=== PATIENT | female | born 1945 | race Asian ===

== ENCOUNTER 2020-08-28 15:23 | Emergency (ER) | payer MEDICARE ==
[~2020-08-28] VITALS: Ht 152.4 cm; Wt 54.4 kg
[2020-08-28 15:25] VITALS: BP_SYST 172
[2020-08-28] MEDS ORDERED: HYDROcodone/ACETAMIN 10-325 MG TAB PO ONE (16:30)
[2020-08-28] MEDS ORDERED: MORPHINE 4 MG/ML INJ. SYRINGE IM ONE (17:30)
[2020-08-28] MEDS ORDERED: ONDANSETRON 4 MG ODT TAB PO ONE (17:30)
[2020-08-28] MEDS ORDERED: KETOROLAC TROMETHAMINE 30 MG VIAL IM ONE (19:15)
[2020-08-28 19:17] VITALS: BP_SYST 167
== END 2020-08-28 19:17 | disposition home or self-care (01) ==
LOC: SED 15:23
DX: S42.021A Displaced fracture of shaft of right clavicle, initial encounter for closed fracture (principal); I10 Essential (primary) hypertension; Z88.1 Allergy status to other antibiotic agents; Z86.79 Personal history of other diseases of the circulatory system; W06.XXXA Fall from bed, initial encounter; Y93.89 Activity, other specified; Y92.89 Other specified places as the place of occurrence of the external cause; Y99.8 Other external cause status
CPT/HCPCS: 73030; 96372; 99283; J2270; Q0162

== ENCOUNTER 2021-03-26 16:20 | Emergency (ER) | payer MEDICARE, SELFPAY ==
[~2021-03-26] VITALS: Ht 147.3 cm; Wt 54.4 kg
[2021-03-26 16:35] VITALS: BP_SYST 150
--- NOTE | 2021-03-26 17:27 | NUR ---
Patient to ER bed H2 to gown for evaluation. Side rails up.
--- NOTE | 2021-03-26 17:36 | NUR ---
PATIENT BROUGHT VIA BLS FROM [facility] COMPLAINING OF LOWER BACK PAIN WORSENING X 1 WEEK AFTER ROLL OFF BED. GIN INSPECTOR REPORT THAT SHE WAS SEEN AT [place] 1 WEEK AGO AND DISCHARGED THE NEXT DAY. ALL TESTS WERE NEGATIVE. PAIN 01/29 [id number]
--- NOTE | 2021-03-26 18:40 | NUR ---
Patient to ER bed 03 to gown for evaluation. Side rails up.
--- NOTE | 2021-03-26 19:19 | NUR ---
ER DR. DUNCAN AT THE BEDSIDE EXAMINING PT
[2021-03-26 19:21] LABS: BASOPHILS # (AUTO) 0.1 K/uL (0.0-0.2); BASOPHILS % (AUTO) 0.4 % (0.0-2.0); EOSINOPHILS # (AUTO) 0.1 K/uL (0.0-0.4); EOSINOPHILS % (AUTO) 0.4 % (0.0-4.0); HEMATOCRIT 36.7 % (36-48); HEMOGLOBIN 12.2 g/dL (12.0-16.0); MEAN CORPUSCULAR HEMOGLOBIN 32 pg (27-31); MEAN CORPUSCULAR HGB CONC 33 % (32-36); MEAN CORPUSCULAR VOLUME 95 fL (79.0-98.0); MONOCYTES # (AUTO) 0.9 K/uL (0.0-1.0); MONOCYTES % (AUTO) 5.6 % (1.7-9.3); NEUTROPHILS # (AUTO) 14.1 K/uL (1.8-7.7); NEUTROPHILS % (AUTO) 87.6 % (40.0-70.0); PLATELET COUNT (AUTO) 356 K/uL (130-430); RED BLOOD CELL COUNT(AUTO) 3.86 MIL/uL (4.2-6.2); RED CELL DISTRIBUTION WIDTH 13.4 % (9.0-15.0); WHITE BLOOD COUNT (AUTO) 16.1 K/uL (4.8-10.8)
[2021-03-26 19:29] LABS: BILIRUBIN,URINE NEGATIVE (NEGATIVE); BLOOD, URINE NEGATIVE (NEGATIVE); CLARITY/URINE CLOUDY (CLEAR); COLOR,URINE YELLOW (YELLOW); GLUCOSE,URINE NEGATIVE (NEGATIVE); KETONES,URINE TRACE (NEGATIVE); LEUKOCYTE ESTERASE ,URINE 2+ (NEGATIVE); NITRITE, URINE NEGATIVE (NEGATIVE); PH,URINE 5.5 (5.0-8.0); PROTEIN URINE NEGATIVE (NEGATIVE); UROBILINOGEN,URINE 0.2 (0.2-1.0)
[2021-03-26] MEDS ORDERED: MORPHINE 2 MG/ML INJ. SYRINGE IVP ONE (19:30)
[2021-03-26 19:38] LABS: ANION GAP 10 (5-15); CHLORIDE 102 mmol/L (98-107); CREATININE 0.91 mg/dL (0.55-1.30); GLUCOSE 158 mg/dL (70-99); POTASSIUM 3.3 mmol/L (3.5-5.1); SODIUM SERUM 140 mmol/L (136-145); UREA NITROGEN, BLOOD 15 mg/dL (8-21)
--- NOTE | 2021-03-26 19:40 | NUR ---
IV Morphine given per md order.
[2021-03-26 19:44] LABS: ALANINE AMINOTRANSFERASE 45 U/L (12-78); ALBUMIN 3.5 g/dL (3.4-4.8); ASPARTATE AMINOTRANSFERASE 36 U/L (10-37); TOTAL BILIRUBIN 0.8 mg/dL (0.0-1.0)
--- NOTE | 2021-03-26 19:50 | NUR ---
2L 02 applied for o2 saturation of 90% on RA.
--- NOTE | 2021-03-26 19:56 | NUR ---
PT TAKEN TO CT IN STABLE CONDITION.
[2021-03-26 20:39] LABS: RBC,URINE 0-3 /HPF (0-3); WBC,URINE >100 /HPF (0-3)
[2021-03-26 20:40] LABS: BACTERIA,URINE MANY /HPF (None Seen)
[2021-03-26 20:41] LABS: OTHER CASTS, URINE WBC CASTS 2+ /LPF (None Seen)
[2021-03-26 20:42] LABS: MUCUS,URINE 2+ /LPF (None Seen)
[2021-03-26] MEDS ORDERED: LEVO88TA5 PO (20:46)
[2021-03-26] MEDS ORDERED: AMLO5TAB4 PO (20:46)
[2021-03-26] MEDS ORDERED: LIP20 PO (20:46)
[2021-03-26] MEDS ORDERED: IBAN150T21 PO (20:46)
[2021-03-26] MEDS ORDERED: LOSA100T3 PO (20:46)
[2021-03-26] MEDS ORDERED: ATEN50TA PO (20:46)
[2021-03-26] MEDS ORDERED: MIRT-91 PO (20:46)
[2021-03-26] MEDS ORDERED: SERT-436 PO (20:46)
[2021-03-26] MEDS ORDERED: cefTRIAXone 1 GM in D5W 50 ML IV ONE (22:00)
--- NOTE | 2021-03-26 22:00 | NUR ---
Pt resting in bed drinking water. Ashu Davis at bedside.
[2021-03-26] MEDS ORDERED: cefTRIAXone 1 GM VIAL ONE (22:10)
[2021-03-26] MEDS ORDERED: MORPHINE 4 MG INJ. 4 MG/ML VIAL IVP ONE (22:15)
[2021-03-27 00:13] VITALS: BP_SYST 111
--- NOTE | 2021-03-27 00:17 | NUR ---
Patient to be transferred to [facility]. Is being transferred due to higher level of care. Receiving facility has accepting physician and available space. ER physician has signed transfer form. Patient or responsible constitution party has agreed to transfer and signed form. Patient belongings inventoried and will be sent with patient. Copy of nursing notes, lab reports, EKG, Physicians Orders and X-rays to be sent with patient. Report called to Real at receiving facility. Receiving physician is Remi. [facility] service has been called for transfer. ETA is 1200.
== END 2021-03-27 00:17 | disposition short-term general hospital (02) ==
LOC: SED 16:20
DX: N39.0 Urinary tract infection, site not specified (principal); M43.9 Deforming dorsopathy, unspecified; I10 Essential (primary) hypertension; Z88.8 Allergy status to other drugs, medicaments and biological substances; Z79.899 Other long term (current) drug therapy; Z20.822 Contact with and (suspected) exposure to COVID-19
CPT/HCPCS: 36415; 74176; 76376; 80053; 81000; 84484; 85025; 87086; 87426; 93005; 96365; 96375; 96376; 99285; J0696; J2270 ×2

== ENCOUNTER 2021-04-10 16:21 | Emergency (ER) | payer MEDICARE, SELFPAY ==
[~2021-04-10 16:21] MED LIST: AMLO5TAB4 PO; ATEN50TA PO; IBAN150T21 PO; LEVO88TA5 PO; LIP20 PO; LOSA100T3 PO; MIRT-91 PO; SERT-436 PO
== END 2021-04-11 00:45 | disposition short-term general hospital (02) ==
LOC: SED 16:21
DX: R41.82 Altered mental status, unspecified (principal); N39.0 Urinary tract infection, site not specified; I10 Essential (primary) hypertension; Z88.8 Allergy status to other drugs, medicaments and biological substances; Z79.899 Other long term (current) drug therapy; Z20.822 Contact with and (suspected) exposure to COVID-19
CPT/HCPCS: 36415; 70450-TC; 71045; 76376; 87040-TC; 87086; 87186-TC; 93005; 99285

== ENCOUNTER 2023-03-02 12:21 | Emergency (ER) | payer MEDICARE ==
[~2023-03-02] VITALS: Ht 142.2 cm; Wt 36.3 kg
[~2023-03-02 12:21] MED LIST changes: -LOSA100T3 PO; +LOSA100T4 PO
[2023-03-02 12:30] VITALS: BP_SYST 128; PULSE 54; RESP 16; TEMP 97.9; O2SAT 93
[2023-03-02] MEDS ORDERED: SERT25TA77 PO (12:44)
[2023-03-02] MEDS ORDERED: CRAN650C PO (12:44)
[2023-03-02] MEDS ORDERED: LACT10SO66 PO (12:44)
[2023-03-02] MEDS ORDERED: CALC-1155 PO (12:44)
[2023-03-02] MEDS ORDERED: ASPI-524 PO (12:44)
[2023-03-02] MEDS ORDERED: OMEP-268 PO (12:44)
[2023-03-02] MEDS ORDERED: SENN8.6T19 PO (12:44)
[2023-03-02] MEDS ORDERED: VITA180C6 PO (12:44)
[2023-03-02] MEDS ORDERED: BISA10SU61 PR (12:44)
[2023-03-02] MEDS ORDERED: ACET325T53 PO (12:44)
[2023-03-02] MEDS ORDERED: GUAI600T86 PO (12:44)
[2023-03-02] MEDS ORDERED: FLUT16SP24 INH (12:44)
[2023-03-02] MEDS ORDERED: QUET50TA15 PO (12:44)
[2023-03-02] MEDS ORDERED: NACL 0.9% 1,000 ML IV ONE (13:00)
[2023-03-02 13:25] LABS: HEMATOCRIT 41.6 % (36-48); HEMOGLOBIN 13.5 g/dL (12.0-16.0); MEAN CORPUSCULAR HEMOGLOBIN 31 pg (27-31); MEAN CORPUSCULAR HGB CONC 32 % (32-36); MEAN CORPUSCULAR VOLUME 95 fL (79.0-98.0); PLATELET COUNT (AUTO) 345 K/uL (130-430); RED BLOOD CELL COUNT(AUTO) 4.38 MIL/uL (4.2-6.2); RED CELL DISTRIBUTION WIDTH 13.7 % (9.0-15.0); WHITE BLOOD COUNT (AUTO) 9.5 K/uL (4.8-10.8)
[2023-03-02 13:44] LABS: ALANINE AMINOTRANSFERASE 10 U/L (12-78); ALBUMIN 3.2 g/dL (3.4-4.8); ANION GAP 10 (5-15); ASPARTATE AMINOTRANSFERASE 21 U/L (10-37); CALCIUM 9.5 mg/dL (8.4-11.0); CARBON DIOXIDE 25 mmol/L (23-29); CHLORIDE 104 mmol/L (98-107); CREATININE 0.61 mg/dL (0.55-1.30); GLUCOSE 108 mg/dL (74-106); POTASSIUM 3.3 mmol/L (3.5-5.1); SODIUM SERUM 139 mmol/L (136-145); TOTAL BILIRUBIN 0.6 mg/dL (0.0-1.0); TOTAL PROTEIN, SERUM 7.3 g/dL (6.4-8.3); UREA NITROGEN, BLOOD 22 mg/dL (8-21)
[2023-03-02 13:45] LABS: BASOPHILS % (MANUAL) 0 % (0-2); EOSINOPHILS % (MANUAL) 0 % (0-7); LYMPHOCYTES % (MANUAL) 20 % (20-46); MONOCYTES % (MANUAL) 2 % (0-11); PLATELET ESTIMATE ADEQUATE (ADEQUATE)
[2023-03-02 13:51] LABS: COVID19 ANTIGEN SOFIA FIA NEGATIVE (NEGATIVE)
[2023-03-02 13:52] LABS: INFLUENZA TYPE A negative (NEGATIVE); INFLUENZA TYPE B NEGATIVE (NEGATIVE)
[2023-03-02 18:34] LABS: BILIRUBIN,URINE NEGATIVE (NEGATIVE); COLOR,URINE YELLOW (YELLOW); GLUCOSE,URINE NEGATIVE (NEGATIVE); KETONES,URINE 1+ (NEGATIVE); LEUKOCYTE ESTERASE ,URINE 2+ (NEGATIVE); NITRITE, URINE NEGATIVE (NEGATIVE); PROTEIN URINE NEGATIVE (NEGATIVE); UROBILINOGEN,URINE 0.2 (0.2-1.0)
[2023-03-02 18:38] LABS: BLOOD, URINE TRACE (NEGATIVE); CLARITY/URINE SLIGHTLY HAZY (CLEAR)
[2023-03-02 18:47] LABS: BACTERIA,URINE FEW /HPF (None Seen); FINE GRANULAR CASTS,URINE 0-10 /LPF (None Seen); HYALINE CASTS, URINE 0-10 /LPF (None Seen); MUCUS,URINE 1+ /LPF (None Seen); RBC,URINE 0-3 /HPF (0-3); WBC,URINE 20-50 /HPF (0-3); YEAST,URINE Moderate /HPF (None Seen)
[2023-03-02] MEDS ORDERED: cefTRIAXone 1 GM in D5W 50 ML IV ONE (19:00)
[2023-03-02] MEDS ORDERED: cefTRIAXone 1 GM VIAL ONE (19:19)
[2023-03-03 00:39] VITALS: BP_SYST 138; PULSE 52; RESP 12; TEMP 97.1; O2SAT 99
== END 2023-03-03 00:39 | disposition short-term general hospital (02) ==
LOC: SED 12:21
DX: R62.7 Adult failure to thrive (principal); R53.1 Weakness; R41.0 Disorientation, unspecified; I10 Essential (primary) hypertension; Z88.8 Allergy status to other drugs, medicaments and biological substances; Z79.899 Other long term (current) drug therapy; Z20.822 Contact with and (suspected) exposure to COVID-19
CPT/HCPCS: 99285; 96365; 70450; 71045; 96361; 87426; 85027; 80053; 81000; 85007; 87040; 87086; 84484; 36415; 93005; 76376; 87804 ×2; 83605; J0696; J7030 ×2; J7060; C1751